=== PATIENT | male | born 1955 | race Caucasian/White ===

== ENCOUNTER 2019-01-20 11:05 | Emergency (ER) | payer OTHER ==
[~2019-01-20] VITALS: Ht 177.8 cm; Wt 115.4 kg
[~2019-01-20 11:05] MED LIST: METFORMIN500 MG PO; OMEPRAZOLE20 MG PO
[2019-01-20 11:52] LABS: EOS # 0.1 (0.04-0.40); EOS % 0.5 % (0.0-4.0); HEMATOCRIT 44.4 % (42.0-52.0); LYMPH# 1.6 (1.50-4.00); MEAN CELL VOLUME 82 fl (78-100); MEAN CORPUSCULAR HEMOGLOBIN 28 pg (27-31); MEAN CORPUSCULAR HGB CONC 34 g/dL (33-37); MEAN PLATELET VOLUME 10.5 fl (7.4-10.4); MONO # 0.9 (0.20-0.80); NEU # 7.4 (1.40-6.50); PLATELET COUNT 341 K/mm3 (130-400); RED BLOOD COUNT 5.41 M/mm3 (4.20-5.60); RED CELL DISTRIBUTION WIDTH 13.8 % (11.5-14.5); WHITE BLOOD COUNT 9.9 K/mm3 (4.8-10.8)
[2019-01-20 12:10] LABS: ALBUMIN 4.2 g/dL (3.4-4.8); CALCIUM 6.8 mg/dL (8.3-10.5); POTASSIUM 3.6 mmol/L (3.5-5.1); TOTAL BILIRUBIN 0.7 mg/dL (0.2-1.2); TOTAL PROTEIN 7.2 g/dL (6.2-8.1)
[2019-01-20 13:51] LABS: TROPONIN-I < 0.03 ng/mL (<0.030)
[2019-01-20] MEDS ORDERED: TRESIBA FL100 UNIT/1 INJ (14:46)
[2019-01-20] MEDS ORDERED: NOVOLOG FLEX100 U/ML SQ (14:47)
[2019-01-20] MEDS ORDERED: LANTUS SOLOS100 U/ML SQ (14:47)
[2019-01-20] MEDS ORDERED: ASPIR LOW81 MG PO (14:49)
[2019-01-20] MEDS ORDERED: NATURE'S BLEND500 M1 PO (14:49)
[2019-01-20] MEDS ORDERED: FISH OIL1000 MG PO (14:50)
[2019-01-20] MEDS ORDERED: K-TAB20 MEQ PO (14:51)
[2019-01-20] MEDS ORDERED: CEPHALEXIN500 M1 PO (14:51)
[2019-01-20] MEDS ORDERED: DILTIAZEM HCL360 M2 PO (14:52)
[2019-01-20] MEDS ORDERED: HYDRALAZINE HYD50 MG PO (14:53)
[2019-01-20] MEDS ORDERED: NASAREL SPRAY25 ML NS (14:53)
[2019-01-20] MEDS ORDERED: HYDROCHLOROTHIA50 M1 PO (14:54)
[2019-01-20] MEDS ORDERED: ALDOMET 250MG250 MG PO (14:58)
[2019-01-20] MEDS ORDERED: OMEPRAZOLE20 MG PO (14:59)
[2019-01-20 15:52] LABS: CALCIUM 6.9 mg/dL (8.3-10.5)
[2019-01-20 15:58] LABS: TROPONIN-I < 0.03 ng/mL (<0.030)
[2019-01-20] MEDS ORDERED: SLOW-MAG 106 MG1 ECT PO (18:37)
[2019-01-20] MEDS ORDERED: NATURAL OYSTER1 TAB PO (18:37)
[2019-01-20 19:20] VITALS: BP 135/75
== END 2019-01-20 19:20 | disposition home or self-care (01) ==
LOC: ED 11:05
PROVIDERS: Family Medicine
DX: M62.838 Other muscle spasm (principal); E87.6 Hypokalemia; E83.42 Hypomagnesemia; R20.8 Other disturbances of skin sensation; E11.9 Type 2 diabetes mellitus without complications; I10 Essential (primary) hypertension; K21.9 Gastro-esophageal reflux disease without esophagitis; Z98.890 Other specified postprocedural states
CPT/HCPCS: J0610; J1885; J3010; J3475

== ENCOUNTER → 2019-01-22 | Outpatient (CLI) | payer OTHER ==
[2019-01-20 19:20] VITALS: BP 135/75
[~2019-01-22] MED LIST changes: +ALDOMET 250MG250 MG PO; +ASPIR LOW81 MG PO; +CEPHALEXIN500 M1 PO; +DILTIAZEM HCL360 M2 PO; +FISH OIL1000 MG PO; +HYDRALAZINE HYD50 MG PO; +HYDROCHLOROTHIA50 M1 PO; +K-TAB20 MEQ PO; +LANTUS SOLOS100 U/ML SQ; +NASAREL SPRAY25 ML NS; +NATURAL OYSTER1 TAB PO; +NATURE'S BLEND500 M1 PO; +NOVOLOG FLEX100 U/ML SQ; +SLOW-MAG 106 MG1 ECT PO; +TRESIBA FL100 UNIT/1 INJ
[2019-01-22 09:25] LABS: EOS # 0.1 (0.04-0.40); EOS % 1.5 % (0.0-4.0); HEMATOCRIT 42.4 % (42.0-52.0); HEMOGLOBIN 14.1 g/dL (13.5-18.0); LYMPH# 2.2 (1.50-4.00); MEAN CELL VOLUME 84 fl (78-100); MEAN CORPUSCULAR HEMOGLOBIN 28 pg (27-31); MEAN CORPUSCULAR HGB CONC 33 g/dL (33-37); MEAN PLATELET VOLUME 10.4 fl (7.4-10.4); MONO # 0.8 (0.20-0.80); NEU # 5.3 (1.40-6.50); PLATELET COUNT 340 K/mm3 (130-400); RED BLOOD COUNT 5.05 M/mm3 (4.20-5.60); RED CELL DISTRIBUTION WIDTH 14.1 % (11.5-14.5); WHITE BLOOD COUNT 8.4 K/mm3 (4.8-10.8)
[2019-01-22 09:42] LABS: ALBUMIN 4.1 g/dL (3.4-4.8); CALCIUM 7.7 mg/dL (8.3-10.5); POTASSIUM 3.5 mmol/L (3.5-5.1); TOTAL BILIRUBIN 0.4 mg/dL (0.2-1.2); TOTAL PROTEIN 6.9 g/dL (6.2-8.1)
== END ==
LOC: LAB 07:49
PROVIDERS: Family Medicine
DX: E83.42 Hypomagnesemia (principal); E86.0 Dehydration